=== PATIENT | female | born 1955 | race Caucasian/White ===

== ENCOUNTER → 2018-04-18 | Outpatient (CLI) | payer MEDICARE ==
[2016-12-09 15:32] VITALS: BP 110/64
[~2018-04-18] MED LIST: CHOL500016 PO; DIVA250T PO; GABA-586 PO; HYDR-2762 PO; IPRA3AMP NEB; LEVO100T PO; ONDA4TAB10 SL; SERT100T PO
--- NOTE | 2018-04-18 14:24 | RAD ---
DATE: 04/18/2018 EXAM: MAMMO FRANK SCREENING BILATERAL HISTORY: Routine screening COMPARISON: 03/06/2017 This study was interpreted with the benefit of Computerized Aided Detection (CAD). The breast parenchyma shows scattered fibroglandular densities. Breast parenchyma level B. FINDINGS: 2-D and 3-D tomosynthesis imaging was performed in CC and MLO projections. No new or enlarging breast densities are seen. Minimal benign type calcification is present. No suspicious microcalcifications have developed. IMPRESSION: Stable mammograms without evidence of malignancy. BI-RADS CATEGORY: 2 BENIGN FINDING(S) RECOMMENDED FOLLOW-UP: 12M 12 MONTH FOLLOW-UP PQRS compliance statement: Patient information was entered into a reminder system with a target due date for the next mammogram. Mammography is a sensitive method for finding small breast cancers, but it does not detect them all and is not a substitute for careful clinical examination. A negative mammogram does not negate a clinically suspicious finding and should not result in delay in biopsying a clinically suspicious abnormality. "Our facility is accredited by the [employer] Mammography Program."
== END | disposition home or self-care (01) ==
LOC: MAMMO 12:28
PROVIDERS: ATTEND Physician Assistant
DX: Z12.31 Encounter for screening mammogram for malignant neoplasm of breast (principal); E11.9 Type 2 diabetes mellitus without complications
CPT/HCPCS: 77063; 77067

== ENCOUNTER → 2019-07-02 | Outpatient (CLI) | payer MEDICARE ==
[2016-12-09 15:32] VITALS: BP 110/64
[~2019-07-02] MED LIST changes: -HYDR-2762 PO; +HYDR-2765 PO; -IPRA3AMP NEB; +IPRA3AMP29 NEB
--- NOTE | 2019-07-05 18:22 | RAD ---
DATE: 07/02/2019 EXAM: MAMMO FRANK SCREENING BILATERAL HISTORY: Routine screening COMPARISON: 03/06/2017 and 04/18/2018 mammographic exams This study was interpreted with the benefit of Computerized Aided Detection (CAD). Breast Density: SCATTERED The breast parenchyma shows scattered fibroglandular densities. Breast parenchyma level B. FINDINGS: At the left upper breast in the CC projection on tomosynthesis imaging, distortion is questioned at the inner aspect approximately 3.3 cm from the nipple. No masses. No suspicious calcifications. IMPRESSION: Possibly of distortion involving the left upper inner breast. Spot compression tomosynthesis imaging in the CC projection recommended. Ultrasound may be needed. BI-RADS CATEGORY: 0 INCOMPLETE: NEEDS ADDITIONAL IMAGING EVALUATION AND/OR PRIOR MAMMOGRAMS FOR COMPARISON. RECOMMENDED FOLLOW-UP: ADD ADDITIONAL IMAGING PQRS compliance statement: Patient information was entered into a reminder system with a target due date now for the next mammogram. Mammography is a sensitive method for finding small breast cancers, but it does not detect them all and is not a substitute for careful clinical examination. A negative mammogram does not negate a clinically suspicious finding and should not result in delay in biopsying a clinically suspicious abnormality. "Our facility is accredited by the [employer] Mammography [employer]."
== END | disposition home or self-care (01) ==
LOC: MAMMO 08:56
PROVIDERS: ATTEND Physician Assistant
DX: Z12.31 Encounter for screening mammogram for malignant neoplasm of breast (principal)
CPT/HCPCS: 77063; 77067

== ENCOUNTER → 2019-08-26 | Outpatient (CLI) | payer MEDICARE ==
[2016-12-09 15:32] VITALS: BP 110/64
--- NOTE | 2019-08-26 14:23 | RAD ---
DATE: 08/26/2019. EXAM: DIGITAL DIAGNOSTIC LT, BREAST LEFT. HISTORY: Additional views requested. Left mammographic density. COMPARISON: 07/02/2019. This study was interpreted with the benefit of Computerized Aided Detection (CAD). FINDINGS: Breast Density: SCATTERED The breast parenchyma shows scattered fibroglandular densities. Breast parenchyma level B.. The density of concern medially is more conspicuous on spot compression in the CC projection, this is likely from superimposition, as it is consistent with a normal parenchymal density on the MLO or rolled CC projections. On today's sonography, only normal parenchyma is seen within the left upper inner breast. There is no correlate for the mammographic finding. An adjacent secretory calcification appears benign. BI-RADS CATEGORY: 3 PROBABLY BENIGN FINDING(S)-SHORT INTERVAL FOLLOW-UP SUGGESTED. RECOMMENDED FOLLOW-UP: 6M 6 MONTH FOLLOW-UP. 1. Recommend 6 month follow-up left mammography to confirm stability of a density medially without sonographic correlate. PQRS compliance statement: Patient information was entered into a reminder system with a target due date 12/31/2019 for the next mammogram. Mammography is a sensitive method for finding small breast cancers, but it does not detect them all and is not a substitute for careful clinical examination. A negative mammogram does not negate a clinically suspicious finding and should not result in delay in biopsying a clinically suspicious abnormality. "Our facility is accredited by the [employer] Mammography Program."
== END | disposition home or self-care (01) ==
LOC: MAMMO 12:52
PROVIDERS: ATTEND Physician Assistant
DX: R92.1 Mammographic calcification found on diagnostic imaging of breast (principal)
CPT/HCPCS: 76641; 77065

== ENCOUNTER 2020-02-13 15:09 | Emergency (ER) | payer MEDICARE ==
[~2020-02-13] VITALS: Ht 154.9 cm; Wt 95.7 kg
[2020-02-13 15:10] VITALS: BP 152/117
[2020-02-13] MEDS: HYDROcodone/APAP 5/325MG 1 TAB TABLET PO ONE (15:39)
--- NOTE | 2020-02-13 15:42 | RAD ---
Examination: WRIST 3V RIGHT, FOREARM RIGHT History: Pain, injury Comparison/Correlation: None Findings: Three-view exam of the right wrist and two-view exam of the right forearm was performed. Impaction fracture of the distal radial metaphysis is present with slight volar angulation. No definite intra-articular extension. Displaced fracture through the ulnar styloid villa. Slight widening of the scapholunate articulation is present on the frontal view. The mid and proximal radius and ulna are unremarkable. Impression: Acute impaction fracture of the distal radial metaphysis. Displaced ulnar styloid fracture. Widened appearance of the scapholunate articulation. Electronically signed by: Yoni Nichols MD (02/13/2020 3:39 PM) [id number]
--- NOTE | 2020-02-13 15:54 | PHYS DOC ---
Past History Past Medical History: Arthritis, Asthma, Depression, Diabetes, Hypothyroid Past Surgical History: Cholecystectomy Alcohol Use: None General Adult EDM: Chief Complaint: MECHANICAL FALL HPI: HPI: 64-year-old female presents after fall at home. The patient was walking on the laundry room when she hit her forehead on a cabinet door. This knocked her off balance and she fell to the ground. She stretched out her right hand to catch herself and she felt a cracking sensation. She is unable to move her wrist after that. It is quite painful at this time. She denies any other injuries or complaints. Review of Systems: Review of Systems: Constitutional: Denies fever or chills Eyes: Denies change in visual acuity HENT: Denies nasal congestion or sore throat Respiratory: Denies cough or shortness of breath Cardiovascular: Denies chest pain or edema GI: Denies abdominal pain, nausea, vomiting, bloody stools or diarrhea : Denies dysuria Musculoskeletal: Right wrist pain Integument: Denies rash Neurologic: Denies headache, focal weakness or sensory changes Endocrine: Denies polyuria or polydipsia Lymphatic: Denies swollen glands Psychiatric: Denies depression or anxiety Heart Score: Risk Factors: Risk Factors: DM, Current or recent (<one month) smoker, HTN, HLP, family history of CAD, obesity. Risk Scores: Score 0 - 3: 2.5% MACE over next 6 weeks - Discharge Home Score 4 - 6: 20.3% MACE over next 6 weeks - Admit for Clinical Observation Score 7 - 10: 72.7% MACE over next 6 weeks - Early Invasive Strategies Current Medications: Current Meds: Current Medications Medications (Trade) Dose Ordered Sig/[facility] Start Time Stop Time Status Last Admin Dose Admin Acetaminophen/ Hydrocodone Bitart (Lortab 5/325) 1 tab 1X ONCE 02/13/20 15:30 02/13/20 15:44 DC 02/13/20 15:39 1 TAB Allergies: Allergies: Allergies Coded Allergies Type Severity Reaction Last Updated Verified codeine Allergy Mild 12/05/16 Yes cyclobenzaprine Allergy Mild 12/05/16 Yes Physical Exam: PE: Constitutional: Well developed, well nourished, mild acute distress, non-toxic appearance. [] HENT: Normocephalic, atraumatic, bilateral external ears normal, oropharynx moist, no oral exudates, nose normal. [] Eyes: PERRLA, EOMI, conjunctiva normal, no discharge. [] Neck: Normal range of motion, no tenderness, supple, no stridor. [] Cardiovascular:Heart rate regular rhythm, no murmur [] Lungs & Thorax: Bilateral breath sounds clear to auscultation [] Abdomen: Bowel sounds normal, soft, no tenderness, no masses, no pulsatile masses. [] Skin: Warm, dry, no erythema, no rash. [] Back: No tenderness, no CVA tenderness. [] Extremities: Range of motion deferred due to pain, tenderness of the right wrist, swelling, likely fracture. [] Neurologic: Alert and oriented X 3, normal motor function, normal sensory function, no focal deficits noted. [] Psychologic: Affect normal, judgement normal, mood normal. [] Current Patient Data: Vital Signs: Vital Signs Date Time Temp Pulse Resp B/P (MAP) Pulse Ox O2 Delivery O2 Flow Rate FiO2 02/13/20 15:10 98.5 84 22 152/117 (129) 96 Room Air EKG: EKG: [] Radiology/Procedures: Radiology/Procedures: [] Impressions: Examination: WRIST 3V RIGHT, FOREARM RIGHT History: Pain, injury Comparison/Correlation: None Findings: Three-view exam of the right wrist and two-view exam of the right forearm was performed. Impaction fracture of the distal radial metaphysis is present with slight volar angulation. No definite intra-articular extension. Displaced fracture through the ulnar styloid villa. Slight widening of the scapholunate articulation is present on the frontal view. The mid and proximal radius and ulna are unremarkable. Impression: Acute impaction fracture of the distal radial metaphysis. Displaced ulnar styloid fracture. Widened appearance of the scapholunate articulation. Electronically signed by: Yoni Guido MD (02/13/2020 3:39 PM) [id number] DICTATED AND SIGNED BY: YONI GUIDO MD DATE: 02/13/20 1539 CC: RIGO PINEDO DO; KARIN MADDEN ~ Course & Med Decision Making: Course & Med Decision Making Pertinent Labs and Imaging studies reviewed. (See chart for details) The patient has a fracture of her distal radius and ulna. See official report for more details. We will place her in a splint and I will discharge her with Micro 7.5/325 for pain. She has been given 2 mg of morphine and a Micro 5/325 in the ER. She will follow-up with orthopedics tomorrow. She is stable for discharge at this time. [] Michel Disclaimer: Dragon Disclaimer: This electronic medical record was generated, in whole or in part, using a voice recognition dictation system. Departure Departure: Impression: Primary Impression: Fracture of radius and ulna near wrist Qualified Codes: S52.501A - Unspecified fracture of the lower end of right radius, initial encounter for closed fracture; S52.601A - Unspecified fracture of lower end of right ulna, initial encounter for closed fracture Disposition: HOME, SELF-CARE Condition: STABLE Referrals: KARIN MADDEN (PCP) Patient Instructions: Wrist Fracture, [id number] Scripts Hydrocodone Bit/Acetaminophen (NORCO 7.5-325 TABLET) 1 Each Tablet 1 TAB PO PRN Q6HRS PRN for PAIN, #14 TAB 0 Refills Prov: RIGO PINEDO DO 02/13/20 RIGO PINEDO DO Feb 13, 2020 15:54
[2020-02-13] MEDS ORDERED: HYDR-3166 PO (16:05)
[2020-02-13] MEDS: MORPHINE SULFATE 2 MG/ML DISP.SYRIN. IM ONE (16:21)
[2020-02-13] MEDS: ONDANSETRON ODT 4 MG TAB.RAPDIS PO ONE (16:21)
== END 2020-02-13 17:10 | disposition home or self-care (01) ==
LOC: ER 15:09
DX: S52.501A Unspecified fracture of the lower end of right radius, initial encounter for closed fracture (principal); S52.601A Unspecified fracture of lower end of right ulna, initial encounter for closed fracture; W18.09XA Striking against other object with subsequent fall, initial encounter; Y93.01 Activity, walking, marching and hiking; Y92.098 Other place in other non-institutional residence as the place of occurrence of the external cause; Y99.8 Other external cause status; M19.90 Unspecified osteoarthritis, unspecified site; J45.909 Unspecified asthma, uncomplicated; E11.9 Type 2 diabetes mellitus without complications; E03.9 Hypothyroidism, unspecified; Z88.5 Allergy status to narcotic agent; Z88.8 Allergy status to other drugs, medicaments and biological substances
CPT/HCPCS: 29125; 73090; 73110; 96372; 99284; J2270; Q0162

== ENCOUNTER 2020-02-16 07:36 | Emergency (ER) | payer MEDICARE ==
[~2020-02-16] VITALS: Ht 154.9 cm; Wt 95.7 kg
[~2020-02-16 07:36] MED LIST changes: +HYDR-3166 PO
--- NOTE | 2020-02-16 07:55 | PHYS DOC ---
Past History Past Medical History: Arthritis, Asthma, Depression, Diabetes, Hypothyroid Past Surgical History: Cholecystectomy, Other (RIGHT FEMUR SURGERY) Alcohol Use: None General Adult EDM: Chief Complaint: KNEE INJURY HPI: HPI: Patient is a 64 years old female who presented to the ER TODAY for evaluation of right knee pain. Patient has history of previous injury to her right distal femur that required surgery. She was standing in her kitchen this Am and her right knee just gave out. Patient is complaining of severe pain in her right knee. Patient denied any other injury. Patient denied any back pain, no pelvic pain, no hip pain. Patient was seen here on 02/13/20 after she fell and broke her right distal radius and ulnar styloid process. A splint was applied on right forearm. Patient was instructed to follow up with orthopedic next week. Patient did hit her head on 02/13/20, she is complaining of headache now. There was no diagnostic imaging done on her head from the last visit. Review of Systems: Review of Systems: Constitutional: Denies fever or chills Eyes: Denies change in visual acuity HENT: Denies nasal congestion or sore throat Respiratory: Denies cough or shortness of breath Cardiovascular: Denies chest pain or edema GI: Denies abdominal pain, nausea, vomiting, bloody stools or diarrhea : Denies dysuria Musculoskeletal: Denies back pain, Positive for right knee pain. Integument: Denies rash Neurologic: Denies headache, focal weakness or sensory changes Endocrine: Denies polyuria or polydipsia Lymphatic: Denies swollen glands Psychiatric: Denies depression or anxiety Heart Score: Risk Factors: Risk Factors: DM, Current or recent (<one month) smoker, HTN, HLP, family history of CAD, obesity. Risk Scores: Score 0 - 3: 2.5% MACE over next 6 weeks - Discharge Home Score 4 - 6: 20.3% MACE over next 6 weeks - Admit for Clinical Observation Score 7 - 10: 72.7% MACE over next 6 weeks - Early Invasive Strategies Allergies: Allergies: Allergies Coded Allergies Type Severity Reaction Last Updated Verified codeine Allergy Mild 12/05/16 Yes cyclobenzaprine Allergy Mild 12/05/16 Yes Physical Exam: PE: Constitutional: Well developed, well nourished, no acute distress, non-toxic appearance. [] HENT: Normocephalic, there is an old bruise on left upper eye brown area, bilateral external ears normal, oropharynx moist, no oral exudates, nose normal. [] Eyes: PERRLA, EOMI, conjunctiva normal, no discharge. [] Neck: Normal range of motion, no tenderness, supple, no stridor. [] Cardiovascular:Heart rate regular rhythm, no murmur [] Lungs & Thorax: Bilateral breath sounds clear to auscultation [] Abdomen: Bowel sounds normal, soft, no tenderness, no masses, no pulsatile masses. [] Skin: Warm, dry, no erythema, no rash. [] Back: No tenderness, no CVA tenderness. [] Extremities: right knee is tender to palpation, right proximal tibia is tender to palpation, no swelling, no obvious deformity. Right forearm in splint. Neurologic: Alert and oriented X 3, normal motor function, normal sensory function, no focal deficits noted. [] Psychologic: Affect normal, judgement normal, mood normal. [] Current Patient Data: Vital Signs: Vital Signs Date Time Temp Pulse Resp B/P (MAP) Pulse Ox O2 Delivery O2 Flow Rate FiO2 02/16/20 07:36 97.7 83 14 125/73 (90) 100 Room Air EKG: EKG: [] Radiology/Procedures: Radiology/Procedures: [][address] [address] IMAGING REPORT Signed PATIENT: JACIEL LACKEY ACCOUNT: [id number] : 1955 LOCATION: ER AGE: 64 SEX: F EXAM STATUS: REG ER ORD. PHYSICIAN: ARMANDO HOLDEN DO REASON: right knee pain, fell this AM PROCEDURE: KNEE RIGHT 3V INDICATION: Right knee pain after fall COMPARISON: None. IMPRESSION: Right knee: 4 views obtained. Plate and screws at the distal femur with old posttraumatic changes and callus formation. Degenerative changes of the knee with osteophyte formation. At least moderate joint effusion. Callus formation at fibula which could be from additional old fracture. Comminuted acute appearing fracture of the proximal tibia which appears minimally displaced affecting the metadiaphysis. Electronically signed by: Pily Duarte MD (02/16/2020 8:24 AM) [id number] DICTATED AND SIGNED BY: PILY DUARTE MD DATE: 02/16/20823 CC: KARIN MADDEN; ARMANDO HOLDEN DO ~ [place] [address] IMAGING REPORT Signed PATIENT: JACIEL LACKEY ACCOUNT: [id number] : 1955 LOCATION: ER AGE: 64 SEX: F EXAM STATUS: REG ER ORD. PHYSICIAN: ARMANDO HOLDEN DO REASON: FELL 2 DAYS AGO AND THEN AGAIN TODAY, HEADACHE, NECK PAIN PROCEDURE: CT HEAD AND CERVICAL SPINE WO CT Head W/O Contrast: History: Filter days ago and then again today has headache and neck pain Comparison: none Axial images were obtained without contrast. There is moderate diffuse atrophy. There is no mass effect, extraaxial fluid collections or hydrocephalus. There is no focal loss of ji-white matter distinction to suggest acute ischemia, i.e. stroke. Impression: No acute findings. End impression CT C-Spine without contrast: Clinical History: Technique: Axial helical images of the cervical spine were obtained without contrast, axial coronal and sagittal reconstruction was performed. Findings: There is no loss of vertebral body stature. There is no prevertebral soft tissue swelling. The vertebral bodies are well aligned. There is straightening of the normal cervical lordosis which can be positional or could be chronic. The C1-C2 relationship is normal. The visualized osseous structures appear normal. Evaluation of the central canal is limited without contrast. There is multiple posterior disc bulges resulting in flattening of the thecal sac. There does not appear to be gross flattening of the cervical cord. There is moderate to marked narrowing of multiple neuroforamen. Impression: No acute findings. Clinical correlation suggested. PQRS Compliance Statement: One or more of the following individualized dose reduction techniques were utilized for this examination: 1. Automated exposure control 2. Adjustment of the mA and/or kV according to patient size 3. Use of iterative reconstruction technique Electronically signed by: Adiel Jean-Baptiste III, MD (02/16/2020 9:44 AM) [id number] DICTATED AND SIGNED BY: ADIEL JEAN-BAPTISTE III, MD DATE: 02/16/20943 CC: KARIN MADDEN; ARMANDO HOLDEN DO ~ Course & Med Decision Making: Course & Med Decision Making Pertinent Labs and Imaging studies reviewed. (See chart for details) Patient will need to be transferred to [facility] today for orthopedic evaluation. A knee immobilizer was applied to her right knee. Dr. Cherry, [facility]GE[facility], WAS CONSULTED ON PHONE, WILL SEE PATIENT THERE. Dragon Disclaimer: Dragon Disclaimer: This electronic medical record was generated, in whole or in part, using a voice recognition dictation system. Departure Departure: Impression: Primary Impression: Closed fracture of right proximal tibia Disposition: 02 XFER SHT-TRM HOSP ([facility], ACCEPTED BY DR. PARKER) Condition: STABLE Referrals: KARIN MADDEN (PCP) ARMANDO HOLDEN DO Feb 16, 2020 07:55
--- NOTE | 2020-02-16 08:27 | RAD ---
INDICATION: Right knee pain after fall COMPARISON: None. IMPRESSION: Right knee: 4 views obtained. Plate and screws at the distal femur with old posttraumatic changes and callus formation. Degenerative changes of the knee with osteophyte formation. At least moderate joint effusion. Callus formation at fibula which could be from additional old fracture. Comminuted acute appearing fracture of the proximal tibia which appears minimally displaced affecting the metadiaphysis. Electronically signed by: Sha Bloom MD (02/16/2020 8:24 AM) [id number]
[2020-02-16 08:38] VITALS: BP 118/72
--- NOTE | 2020-02-16 09:46 | RAD ---
CT Head W/O Contrast: History: Filter days ago and then again today has headache and neck pain Comparison: none Axial images were obtained without contrast. There is moderate diffuse atrophy. There is no mass effect, extraaxial fluid collections or hydrocephalus. There is no focal loss of ji-white matter distinction to suggest acute ischemia, i.e. stroke. Impression: No acute findings. End impression CT C-Spine without contrast: Clinical History: Technique: Axial helical images of the cervical spine were obtained without contrast, axial coronal and sagittal reconstruction was performed. Findings: There is no loss of vertebral body stature. There is no prevertebral soft tissue swelling. The vertebral bodies are well aligned. There is straightening of the normal cervical lordosis which can be positional or could be chronic. The C1-C2 relationship is normal. The visualized osseous structures appear normal. Evaluation of the central canal is limited without contrast. There is multiple posterior disc bulges resulting in flattening of the thecal sac. There does not appear to be gross flattening of the cervical cord. There is moderate to marked narrowing of multiple neuroforamen. Impression: No acute findings. Clinical correlation suggested. PQRS Compliance Statement: One or more of the following individualized dose reduction techniques were utilized for this examination: 1. Automated exposure control 2. Adjustment of the mA and/or kV according to patient size 3. Use of iterative reconstruction technique Electronically signed by: Claude Vasquez III, MD (02/16/2020 9:44 AM) [id number]
== END 2020-02-16 10:54 | disposition short-term general hospital (02) ==
LOC: ER 07:36
DX: S82.101A Unspecified fracture of upper end of right tibia, initial encounter for closed fracture (principal); R51 Headache; E11.9 Type 2 diabetes mellitus without complications; M19.90 Unspecified osteoarthritis, unspecified site; J45.909 Unspecified asthma, uncomplicated; E03.9 Hypothyroidism, unspecified; Z88.5 Allergy status to narcotic agent; Z88.8 Allergy status to other drugs, medicaments and biological substances; W18.39XA Other fall on same level, initial encounter; Y93.89 Activity, other specified; Y92.89 Other specified places as the place of occurrence of the external cause; Y99.8 Other external cause status
CPT/HCPCS: 29505; 70450; 72125; 73562; 96374; 99285; J3010

== ENCOUNTER → 2020-04-23 | Outpatient (CLI) | payer MEDICARE ==
--- NOTE | 2020-04-23 17:19 | RAD ---
Examination: WRIST 3V RIGHT History: Reason: RIGHT WRIST AND LEG PAIN / Spl. Instructions: / History: Comparison/Correlation: 02/13/2020 right wrist x-rays Findings: 3 images of the right wrist were obtained. Plate and screws are noted involving the distal right radius. Fracture deformity involving the distal radial metaphysis is again seen. Partial reduction of fracture noted. 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 Interval cortication of the fracture site is seen. No new process identified. Impression: ORIF of the distal radius. Fracture deformity is still seen. Notable progression of healing in the interval. Nonunion fracture of the ulnar styloid is present with cortication seen at the fracture sites. Electronically signed by: Yoni Nichols MD (04/23/2020 5:17 PM) [id number]
--- NOTE | 2020-04-23 17:21 | RAD ---
AP and lateral right tibia and fibula radiographs 04/23/2020 CLINICAL HISTORY: Right leg pain. AP and 2 lateral digital radiographs of the right tibia and fibula were obtained. Comparison is made to radiographs of the right knee dated 02/16/2020. There is diffuse osteopenia of the visualized bony structures. A side plate and multiple bone screws is seen transfixing a healed fracture of the distal right diaphysis/metaphysis of the femur. The patient displayed post ORIF of fracture of the proximal diaphysis/metaphysis of the right tibia using an intramedullary jil and proximal and distal interlocking bone screws. Callus formation is seen consistent with interval healing. A healed fracture of the proximal diaphysis of the right fibula is again noted. No acute fracture is seen. IMPRESSION: Healing fracture of the proximal right tibia as discussed above. Electronically signed by: Shelton Arreguin MD (04/23/2020 5:18 PM) [id number]
== END | disposition home or self-care (01) ==
LOC: DXRAD 14:16
PROVIDERS: ATTEND Orthopaedic Surgery
DX: S82.301D Unspecified fracture of lower end of right tibia, subsequent encounter for closed fracture with routine healing (principal); S52.611K Displaced fracture of right ulna styloid process, subsequent encounter for closed fracture with nonunion; X58.XXXD Exposure to other specified factors, subsequent encounter
CPT/HCPCS: 73110; 73590

== ENCOUNTER → 2020-07-09 | Outpatient (CLI) | payer MEDICARE ==
--- NOTE | 2020-07-09 16:40 | RAD ---
EXAM: Right wrist, 3 views. HISTORY: Fracture follow-up. COMPARISON: 04/23/2020. FINDINGS: 3 views of the right wrist are obtained. There is internal fixation of a distal radial metaphyseal fracture with a plate and multiple screws. There has been progressive healing along the fracture line compared to the prior study. 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 There is sclerosis involving the lunate but be due to osteonecrosis. There is scapholunate joint space widening due to suspected chronic scapholunate ligament injury. IMPRESSION: 1. Slight interval healing of a distal radial metaphyseal fracture status post internal fixation. 2. Chronic pain at ulnar styloid fracture. 3. Stable sclerosis involving the lunate, suggesting osteonecrosis. There is also a suspected chronic scapholunate ligament tear. Electronically signed by: Angela Grijalva MD (07/09/2020 4:38 PM) [id number]
--- NOTE | 2020-07-09 16:42 | RAD ---
EXAM: Right tibia and fibula, 2 views. HISTORY: Fracture follow-up. COMPARISON: 04/23/2020 FINDINGS: 2 views of the tibia and fibular obtained. There is internal fixation of a proximal tibial metadiaphyseal fracture within intramedullary jil. There has been progressive interval healing along the fracture line. There is also internal fixation of a distal femoral fracture, partially included on the [id number]. There is a healed or progressive healing proximal fibular fracture. There is severe lateral compartment predominant osteoarthritis of the right knee. There is degenerative subchondral sclerosis and subchondral cyst formation involving the tibial plafond. There is a small plantar spur. IMPRESSION: Progressive healing of a proximal tibial fracture status post internal fixation and progressive healing or healed proximal fibular fracture. Electronically signed by: Angela Grijalva MD (07/09/2020 4:39 PM) [id number]
== END | disposition home or self-care (01) ==
LOC: DXRAD 15:46
PROVIDERS: ATTEND Orthopaedic Surgery
DX: S52.531D Colles' fracture of right radius, subsequent encounter for closed fracture with routine healing (principal); S82.25 Comminuted fracture of shaft of tibia; M17.11 Unilateral primary osteoarthritis, right knee; G89.29 Other chronic pain; X58.XXXD Exposure to other specified factors, subsequent encounter
CPT/HCPCS: 73110; 73590

== ENCOUNTER → 2021-02-21 | Outpatient (CLI) | payer MEDICARE ==
--- NOTE | 2021-02-21 12:44 | RAD ---
EXAM: PA, oblique and lateral views of the left hand DATE: 02/21/2021 12:10 PM INDICATION: Reason: LEFT HAND PAIN, INJURY FALL MONDAY / . Instructions: / History: . COMPARISON: No Prior FINDINGS: No evidence of acute fracture or dislocation. Scattered IP joint degenerative changes. Scapholunate w idening measures 4 mm. Degenerative changes are seen at the right scaphoid joint. IMPRESSION: 1. Scapholunate widening measures 4 mm. Underlying scapholunate ligamentous sprain or tear is suspec jose roberto. 2. There is no acute fracture or dislocation. Electronically signed by: Anthony Curtis MD (02/21/2021 12:41 PM) JHONNY
== END ==
LOC: PMG 11:21
PROVIDERS: ATTEND Nurse Practitioner Family
DX: S69.92XA Unspecified injury of left wrist, hand and finger(s), initial encounter (principal); M19.042 Primary osteoarthritis, left hand; X58.XXXA Exposure to other specified factors, initial encounter; Y93.89 Activity, other specified; Y92.89 Other specified places as the place of occurrence of the external cause; Y99.8 Other external cause status
CPT/HCPCS: 73130

== ENCOUNTER → 2021-03-11 | Outpatient (CLI) | payer MEDICARE ==
--- NOTE | 2021-03-11 11:20 | RAD ---
EXAM: Left hand, 2 views. HISTORY: Fall. Pain. COMPARISON: 02/21/2021. FINDINGS: 2 views of the left hand are obtained. The lateral images limited due to motion. There is w idening of the scapholunate joint space, measuring 3.7 mm. There is no fracture. IMPRESSION: 1. No acute osseous finding. 2. Scapholunate joint space widening. This can be seen with scapholunate ligament injury. Electronically signed by: Angela Grijalva MD (03/11/2021 11:17 AM) [id number]
== END ==
LOC: PMG 10:55
PROVIDERS: ATTEND Physician Assistant
DX: M79.605 Pain in left leg (principal)
CPT/HCPCS: 73120

== ENCOUNTER → 2021-03-23 | Outpatient (CLI) | payer MEDICARE ==
--- NOTE | 2021-03-23 16:00 | RAD ---
XR HAND_RIGHT 3 VIEWS History: Reason: HAND PAIN / Spl. Instructions: / History: Technique: 3 views right hand Comparison: None. Findings: Internal fixation prior right distal radius fracture. 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 Mild distal interphalangeal degenerative changes. No acute frac ture. Deformity of the scaphoid. Widening of the scapholunate interval with proximal migration of the capit ate. Dorsal tilt the lunate. Impression: 1. 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 Electronically signed by: Mayco Hadley DO (03/23/2021 3:58 PM) AMANDA
== END ==
LOC: RAD 13:56
PROVIDERS: ATTEND Physician Assistant
DX: M79.641 Pain in right hand (principal)
CPT/HCPCS: 73130

== ENCOUNTER → 2021-04-29 | Outpatient (CLI) | payer MEDICARE ==
--- NOTE | 2021-04-30 11:10 | RAD ---
XR RT WRIST 3VIEWS History: Reason: METACARPALS HURT, HX OSTEOPOROSIS AND MULTIPLE FRACTURES / Spl. Instructions: / His tory: Technique: 3 views right wrist Comparison: July 09, 2020 and March 23, 2021 Findings: Internal fixation right distal radius fracture, unchanged alignment. Chronic ununited ulnar sided fra cture. Mild first carpal metacarpal triscaphe DJD. SLAC wrist deformity. Slight widening of the scaph olunate interval with dorsal tilt of the lunate, unchanged. Deformity of the scaphoid, unchanged. Impression: 1. No acute osseous abnormality. 2. Unchanged appearance of the wrist with widening of the scapholunate interval and dorsal tilt of t he lunate. 3. Internal fixation distal radius. Electronically signed by: Mayco Hadley DO (04/30/2021 11:07 AM) [id number]
== END ==
LOC: RAD 12:25
PROVIDERS: ATTEND Physician Assistant
DX: M25.531 Pain in right wrist (principal)
CPT/HCPCS: 73110